=== PATIENT | female | born 1985 | race Caucasian/White ===

== ENCOUNTER 2020-08-29 06:23 | Inpatient (IN) ==
[2020-08-29] MEDS ORDERED: LACTATED RINGERS 1,000 ML IV SCH (07:30)
[2020-08-29] MEDS ORDERED: LACTATED RINGERS 500 ML IV PRN (07:30)
[2020-08-29] MEDS ORDERED: MEPERIDINE 50 MG/1 ML VIAL IV PRN (07:30)
[2020-08-29] MEDS ORDERED: ONDANSETRON 4 MG/2 ML VIAL IV PRN (07:30)
[2020-08-29] MEDS ORDERED: BUTORPHANOL 2 MG/ML VIAL IV PRN (07:30)
[2020-08-29] MEDS ORDERED: OXYTOCIN/LR 20 UNIT/1,000 ML BAG IV SCH (07:30)
[2020-08-29 07:51] LABS: Basophils % 0.3 % (0.0-0.8); Eosinophils # 0.1 10*3/uL (0.0-0.87); Eosinophils % 0.6 % (0.00-10.9); Hematocrit 34.3 VOL% (35.7-47.0); Hemoglobin 11.6 GM/DL (12.0-16.0); Immature Granulocytes % 0.5 %; Immature Granulocytes Absolute 0.04 #; Lymphocytes # 1.8 10*3/uL (1.4-4.0); Lymphocytes % 23.1 % (21.3-54.2); Mean Corpuscular HGB Conc 33.8 GM/DL (32-36); Mean Corpuscular Volume 89.1 FL (87-102); Mean Platelet Volume 12.6 FL (9.6-12.0); Neutrophils % 66.5 % (38.7-73.9); Platelet Count 177 T/CUMM (130-400); Red Blood Count 3.85 MC/CUMM (3.8-5.5); Red Cell Distribution Width 14.1 % (9.3-17.3); White Blood Count 7.8 T/CUMM (4-12)
[2020-08-29] MEDS ORDERED: hydrOXYzine HCL 25 MG/1 ML VIAL IM PRN (09:21)
[2020-08-29] MEDS ORDERED: LACTATED RINGERS 1,000 ML IV ONE (09:21)
[2020-08-29] MEDS ORDERED: PROMETHAZINE 25 MG/1 ML VIAL IM ONE (09:21)
[2020-08-29] MEDS ORDERED: NALOXONE 0.4 MG/ML VIAL IV PRN (09:21)
[2020-08-29] MEDS ORDERED: FAMOTIDINE 20 MG/2 ML VIAL IV ONE (09:21)
[2020-08-29] MEDS ORDERED: diphenhydrAMINE 50 MG/1 ML VIAL IV PRN ×2 (09:21)
[2020-08-29] MEDS ORDERED: ePHEDrine 50 MG/ML VIAL IV PRN (09:21)
[2020-08-29] MEDS ORDERED: CITRIC ACID/SODIUM CITRATE 30 ML UDCUP PO ONE (09:21)
[2020-08-29] MEDS ORDERED: fentaNYL 2 MCG/ROPIV 0.2% EPID 100 ML EPIDURAL SCH (09:30)
[2020-08-29] MEDS ORDERED: miSOPROStoL 200 MCG TABLET ONE (12:14)
[2020-08-29] MEDS ORDERED: METHYLERGONOVINE 0.2 MG/1 ML AMP ONE (12:14)
[2020-08-29] MEDS ORDERED: CARBOPROST TROMETHAMINE 250 MCG/ML AMP IM ONE (12:14)
[2020-08-29] MEDS ORDERED: TRANEXAMIC ACID 1,000 MG/10 ML VIAL ONE (12:14)
[2020-08-29 12:45] LABS: Bilirubin,Urine Negative (Negative); Blood, Urine Small mg/dL (Negative); Glucose,Urine (UA) Negative (Negative); Ketones,Urine 5 mg/dL (Negative); Mucus,Urine Occasional /LPF (Occasional); Nitrite,Urine Negative (Negative); Protein,Urine 100 MG/DL; RBC,Urine 1 /HPF (0-4); Squamous Epithelial Cell,Urine Occasional /HPF (0-10); Urine Appearance CLEAR (Clear); Urine Color Yellow (Yellow); Urine Specific Gravity 1.018 (1.001-1.035); Urine Urobilinogen < 2.0 EU/DL (0.2-1.0); WBC,Urine 1 /HPF (0-6)
[2020-08-29 12:53] LABS: Cord Venous Blood HCO3 24.4 MMOL/L; Cord Venous Blood PCO2 45.8 MMHG; Cord Venous Blood PO2 26.6 MMHG
[2020-08-29] MEDS: IBUPROFEN 800 MG TABLET PO PRN (16:36)
[2020-08-29] MEDS: DOCUSATE SODIUM 100 MG CAPSULE PO SCH (20:52)
[2020-08-30] MEDS: IBUPROFEN 800 MG TABLET PO PRN ×3 (00:07→19:45)
[2020-08-30 06:31] LABS: Basophils % 0.2 % (0.0-0.8); Eosinophils # 0.1 10*3/uL (0.0-0.87); Eosinophils % 0.6 % (0.00-10.9); Hematocrit 28.5 VOL% (35.7-47.0); Hemoglobin 9.3 GM/DL (12.0-16.0); Immature Granulocytes % 0.5 %; Immature Granulocytes Absolute 0.05 #; Lymphocytes # 1.8 10*3/uL (1.4-4.0); Lymphocytes % 18.8 % (21.3-54.2); Mean Corpuscular HGB Conc 32.6 GM/DL (32-36); Mean Corpuscular Volume 91.3 FL (87-102); Mean Platelet Volume 11.8 FL (9.6-12.0); Neutrophils % 71.9 % (38.7-73.9); Platelet Count 137 T/CUMM (130-400); Red Blood Count 3.12 MC/CUMM (3.8-5.5); Red Cell Distribution Width 14.4 % (9.3-17.3); White Blood Count 9.3 T/CUMM (4-12)
[2020-08-30] MEDS: DOCUSATE SODIUM 100 MG CAPSULE PO SCH ×2 (09:07→19:46)
[2020-08-30] MEDS: FERROUS SULFATE 325 MG TABLET PO SCH ×2 (09:08→19:46)
[2020-08-31] MEDS: FERROUS SULFATE 325 MG TABLET PO SCH ×2 (02:34→08:05)
[2020-08-31] MEDS: DOCUSATE SODIUM 100 MG CAPSULE PO SCH ×2 (02:34→08:05)
[2020-08-31] MEDS: IBUPROFEN 800 MG TABLET PO PRN (08:04)
[2020-08-31 08:50] VITALS: BP 127/74
== END 2020-08-31 12:10 | disposition home or self-care (01) | DRG 560 ==
LOC: N.LD 06:23 → N.OB 15:05
PROVIDERS: ADMIT Obstetrics & Gynecology; ATTEND Obstetrics & Gynecology

== ENCOUNTER 2021-10-01 20:50 | Inpatient (IN) ==
[2021-10-01 21:24] LABS: Basophils # 0.1 10*3/uL (0.0-0.2); Basophils % 0.2 % (0.0-0.8); Hematocrit 36.3 VOL% (35.7-47.0); Hemoglobin 12.2 GM/DL (12.0-16.0); Immature Granulocytes % 0.6 %; Immature Granulocytes Absolute 0.15 #; Lymphocytes # 3.2 10*3/uL (1.4-4.0); Lymphocytes % 13.8 % (21.3-54.2); Mean Corpuscular HGB Conc 33.6 GM/DL (32-36); Mean Corpuscular Volume 93.3 FL (87-102); Mean Platelet Volume 10.4 FL (9.6-12.0); Monocytes % 4.8 % (1.7-12.7); Neutrophils % 80.6 % (38.7-73.9); Platelet Count 317 T/CUMM (130-400); Red Blood Count 3.89 MC/CUMM (3.8-5.5); Red Cell Distribution Width 13.5 % (9.3-17.3); White Blood Count 23.5 T/CUMM (4-12)
[2021-10-01 21:48] LABS: Alanine Aminotransferase 26 U/L (13-56); Albumin 3.8 G/DL (3.4-5.0); Alkaline Phosphatase 71 U/L (45-117); Aspartate Amino Transferase 12 U/L (0-37); Bilirubin,Total < 0.39 MG/DL (0.20-1.00); Blood Urea Nitrogen 13 MG/DL (7-18); Calcium 8.9 MG/DL (8.5-10.1); Carbon Dioxide 22 MMOL/L (21-32); Estimated Glom Filtration Rate 68 ML/MIN; Glucose 186 MG/DL (74-106); Osmolality,Calculated 274.1 MOS/KG (273-304); Potassium 3.8 MMOL/L (3.5-5.1); Sodium 135 MMOL/L (136-145); Total Protein 7.5 G/DL (6.4-8.2)
[2021-10-01] MEDS ORDERED: SODIUM CHLORIDE 0.9% 1,000 ML IV STA ×2 (21:52→21:54)
[2021-10-01] MEDS ORDERED: ONDANSETRON 4 MG/2 ML VIAL IV ONE (21:54)
[2021-10-01] MEDS ORDERED: HYDROmorphone 1 MG/1 ML SYRINGE IV STA (21:54)
[2021-10-01 22:06] LABS: Band Neutrophils 14 % (0-10); Lymphocytes 20 % (20-55); Segmented Neutrophils 60 % (50-85); Total Cells Counted 100
[2021-10-01 22:07] LABS: Platelet Estimate Adequate
[2021-10-01 22:22] LABS: PT Patient Result 11.2 SECS (10.5-12.0)
[2021-10-01] MEDS ORDERED: propofoL 200 MG/20 ML VIAL IV ONE (22:34)
[2021-10-01] MEDS ORDERED: SUCCINYLCHOLINE 200 MG/10 ML VIAL ONE (22:34)
[2021-10-01] MEDS ORDERED: ROCURONIUM 50 MG/5 ML VIAL IV ONE (22:34)
[2021-10-01] MEDS ORDERED: MIDAZOLAM 2 MG/2 ML VIAL ONE (22:34)
[2021-10-01] MEDS ORDERED: LIDOCAINE 2% 5 ML VIAL ONE (22:34)
[2021-10-01] MEDS ORDERED: fentaNYL 100 MCG/2 ML VIAL ONE (22:34)
[2021-10-01] MEDS ORDERED: DEXAMETHASONE 4 MG/1 ML VIAL ONE (22:43)
[2021-10-01] MEDS ORDERED: ONDANSETRON 4 MG/2 ML VIAL ONE (22:43)
[2021-10-01] MEDS ORDERED: ACETAMINOPHEN INJ 1,000 MG/100 ML VIAL IV ONE (22:45)
[2021-10-01] MEDS ORDERED: GLYCOPYRROLATE 0.4 MG/2 ML VIAL ONE (22:46)
[2021-10-01] MEDS ORDERED: NEOSTIGMINE 10 MG/10 ML VIAL ONE (22:46)
[2021-10-01] MEDS ORDERED: ONDANSETRON 4 MG/2 ML VIAL IV PRN (22:59)
[2021-10-01] MEDS ORDERED: PROMETHAZINE INJ 25 MG in SODIUM CHLORIDE 0.9% 50 ML IV PRN (22:59)
[2021-10-01] MEDS ORDERED: diphenhydrAMINE 50 MG/1 ML VIAL IV PRN (22:59)
[2021-10-01] MEDS ORDERED: MEPERIDINE 25 MG/1 ML VIAL IV PRN (22:59)
[2021-10-01] MEDS ORDERED: HYDROmorphone 1 MG/1 ML SYRINGE IV PRN (22:59)
[2021-10-01] MEDS ORDERED: TISSUE ADHESIVE 1 EACH APPLICATOR TOP ONE (23:10)
[2021-10-01] MEDS ORDERED: PHENYLEPHRINE 1 MG/10 ML SYRINGE IV ONE (23:40)
[2021-10-01] MEDS ORDERED: ceFAZolin 1,000 MG VIAL ONE (23:40)
[2021-10-01] MEDS ORDERED: KETOROLAC 30 MG/1 ML VIAL ONE (23:57)
[2021-10-02] MEDS ORDERED: SODIUM CHLORIDE 0.9% 1,000 ML IV ONE
[2021-10-02] MEDS ORDERED: SEVOFLURANE 1 UNIT/15 MINUTE INH ONE (00:01)
[2021-10-02] MEDS ORDERED: ACETAMINOPHEN 325 MG TABLET PO PRN (00:14)
[2021-10-02] MEDS ORDERED: BENZOCAINE/MENTHOL LOZENGE 18/BOX PO PRN (00:14)
[2021-10-02] MEDS ORDERED: ONDANSETRON 4 MG/2 ML VIAL IV PRN (00:14)
[2021-10-02 00:17] LABS: Bilirubin,Urine Negative (Negative); Blood, Urine Negative (Negative); Glucose,Urine (UA) Negative (Negative); Hyaline Casts,Urine 16 /LPF (0-3); Ketones,Urine Negative (Negative); Mucus,Urine Many /LPF (Occasional); Nitrite,Urine Negative (Negative); Protein,Urine 30 mg/dL (Negative); RBC,Urine 2 /HPF (0-4); Squamous Epithelial Cell,Urine Occasional /HPF (0-10); Urine Appearance Clear (Clear); Urine Color Yellow (Yellow); Urine Specific Gravity > 1.030 (1.001-1.035); Urine Urobilinogen 0.2 eU/dL (<2.0); Urine pH 5.5 (4.5-8.0)
[2021-10-02] MEDS: LACTATED RINGERS 1,000 ML IV SCH ×2 (00:29→09:59)
[2021-10-02] MEDS ORDERED: ALUMINUM/MAGNES/SIMETH MAX STR 30 ML UDCUP PO PRN (01:22)
[2021-10-02] MEDS: IBUPROFEN 800 MG TABLET PO PRN ×2 (01:34→09:16)
[2021-10-02 05:08] LABS: Basophils % 0.2 % (0.0-0.8); Hematocrit 26.6 VOL% (35.7-47.0); Immature Granulocytes % 0.4 %; Immature Granulocytes Absolute 0.05 #; Lymphocytes % 7.8 % (21.3-54.2); Mean Corpuscular HGB Conc 33.8 GM/DL (32-36); Mean Corpuscular Volume 93.3 FL (87-102); Mean Platelet Volume 11.6 FL (9.6-12.0); Neutrophils % 90.6 % (38.7-73.9); Platelet Count 150 T/CUMM (130-400); Red Blood Count 2.85 MC/CUMM (3.8-5.5); Red Cell Distribution Width 13.4 % (9.3-17.3); White Blood Count 12.5 T/CUMM (4-12)
[2021-10-02 05:34] LABS: Band Neutrophils 4 % (0-10); Lymphocytes 5 % (20-55); Microcytosis 1+; Segmented Neutrophils 90 % (50-85); Total Cells Counted 100
[2021-10-02 09:06] VITALS: BP 110/63
== END 2021-10-02 11:45 | disposition home or self-care (01) | DRG 547 ==
LOC: N.ED 20:50 → N.EDINP 22:57 → N.OB 10-02 00:45
PROVIDERS: ADMIT Obstetrics & Gynecology; ATTEND Obstetrics & Gynecology